=== PATIENT | female | born 1980 | race Hispanic/Latino ===

== ENCOUNTER 2019-06-14 18:24 | Emergency (ER) | payer SELFPAY ==
[2019-06-14] MEDS ORDERED: SODIUM CHLORIDE 0.9% 1000ML 1,000 ML IV ONE (18:53)
[2019-06-14] MEDS ORDERED: METHYLPREDNISOLONE SOD SUCC 125MG/2ML VIAL ONE (19:12)
[2019-06-14] MEDS ORDERED: EPINEPHRINE 1 MG/ML AMPULE ONE (19:12)
[2019-06-14] MEDS ORDERED: FAMOTIDINE/PF 20 MG/2 ML VIAL IV ONE (19:12)
[2019-06-14] MEDS ORDERED: DiphenhydrAMINE HCL 50 MG/ML VIAL ONE (19:12)
== END 2019-06-14 20:05 | disposition home or self-care (01) ==
LOC: EDH 18:24
DX: T63.441A Toxic effect of venom of bees, accidental (unintentional), initial encounter (principal); T78.2XXA Anaphylactic shock, unspecified, initial encounter; I10 Essential (primary) hypertension; Z88.6 Allergy status to analgesic agent; X58.XXXA Exposure to other specified factors, initial encounter
CPT/HCPCS: 94640; 96372 ×2; 96374; 96375; 99284; J0171; J1200; J2930; J3490; J7030

== ENCOUNTER 2019-06-20 21:56 | Emergency (ER) | payer SELFPAY ==
[2019-06-20 22:28] LABS: CREATININE 1.1 mg/dL (0.5-1.5); POTASSIUM 4.1 mmol/L (3.5-5.1)
[2019-06-20 22:29] LABS: INR 0.94 (0.85-1.15); PARTIAL THROMBOPLASTIN TIME 26.9 SEC (26.3-35.5); PROTHROMBIN TIME 9.9 SEC (9.6-11.6)
[2019-06-20 22:32] LABS: ALBUMIN 3.5 g/dL (3.5-5.0); BILIRUBIN,TOTAL 0.2 mg/dL (0.2-1.0); TOTAL PROTEIN, SERUM 7.5 g/dL (6.0-8.3)
[2019-06-20 22:38] LABS: BASOPHILS % (AUTO) 0.5 % (0.0-5.0); EOSINOPHILS % (AUTO) 6.7 % (0.0-8.0); HEMATOCRIT 43.3 % (36-48); LYMPHOCYTES % (AUTO) 21.7 % (21.0-51.0); MEAN CORPUSCULAR HEMOGLOBIN 29.5 pg (27.0-33.0); MEAN CORPUSCULAR HGB CONC 33.3 g/dL (32.0-36.0); MEAN CORPUSCULAR VOLUME 88.6 fL (79-99); MONOCYTES % (AUTO) 5.6 % (3.0-13.0); NEUTROPHILS % (AUTO) 65.5 % (40.0-77.0); PLATELET COUNT (AUTO) 292 K/uL (130-400); RED BLOOD CELL COUNT(AUTO) 4.88 MIL/uL (4.00-5.50); RED CELL DISTRIBUTION WIDTH 12.8 % (11.0-15.5); WHITE BLOOD COUNT (AUTO) 13.7 K/uL (4.8-10.8)
[2019-06-20 23:06] LABS: APPEARANCE,URINE Clear (CLEAR); BILIRUBIN,URINE Negative (NEGATIVE); COLOR,URINE Yellow (YELLOW); GLUCOSE, URINE (UA) Negative (NEGATIVE); KETONES,URINE Negative (NEGATIVE); LEUKOCYTE ESTERASE ,URINE Negative (NEGATIVE); NITRATE,URINE Negative (NEGATIVE); OCCULT BLOOD,URINE Negative (NEGATIVE); PH,URINE 5.5 (5.0-8.0); PROTEIN,URINE Negative (NEGATIVE); UROBILINOGEN,URINE 0.2 mg/dL (0.2-1.0)
[2019-06-20 23:08] LABS: HCG,QUAL RESULT NEGATIVE (NEGATIVE)
[2019-06-20 23:13] LABS: AMPHET/METH SCREEN,URINE NEGATIVE (NEGATIVE); BARBITURATE SCREEN, URINE NEGATIVE (NEGATIVE); BENZODIAZEPINES SCREEN,URINE NEGATIVE (NEGATIVE); CANNABINOID SCREEN,URINE NEGATIVE (NEGATIVE); COCAINE SCREEN,URINE NEGATIVE (NEGATIVE); OPIATE SCREEN,URINE NEGATIVE (NEGATIVE); PHENCYCLIDINE SCREEN,URINE NEGATIVE (NEGATIVE)
[2019-06-20] MEDS ORDERED: TRAMADOL HCL 50 MG TABLET ONE (23:26)
== END 2019-06-21 00:50 | disposition home or self-care (01) ==
LOC: EDH 21:56
DX: R07.89 Other chest pain (principal); R51 Headache; R20.2 Paresthesia of skin; R19.7 Diarrhea, unspecified; M54.6 Pain in thoracic spine; I10 Essential (primary) hypertension; J45.909 Unspecified asthma, uncomplicated; Z88.6 Allergy status to analgesic agent
CPT/HCPCS: 36415; 71045; 80053; 80305; 81003; 81025; 82550; 84484; 85025; 85610; 85730; 93005

== ENCOUNTER 2022-07-21 14:23 | Emergency (ER) | payer OTHER ==
[~2022-07-21] VITALS: Ht 152.4 cm; Wt 95.3 kg
[2022-07-21 15:07] LABS: BASOPHILS % (AUTO) 0.4 % (0.0-5.0); HEMATOCRIT 40.8 % (36-48); LYMPHOCYTES % (AUTO) 29.6 % (21.0-51.0); MEAN CORPUSCULAR HGB CONC 32.6 g/dL (32.0-36.0); MEAN CORPUSCULAR VOLUME 88.9 fL (79-99); MONOCYTES % (AUTO) 4.5 % (3.0-13.0); PLATELET COUNT (AUTO) 305 K/uL (130-400); RED BLOOD CELL COUNT(AUTO) 4.59 MIL/uL (4.00-5.50); RED CELL DISTRIBUTION WIDTH 12.5 % (11.0-15.5); WHITE BLOOD COUNT (AUTO) 11.2 K/uL (4.8-10.8)
[2022-07-21 15:18] LABS: CREATININE 1.1 mg/dL (0.5-1.5); POTASSIUM 4.1 mmol/L (3.5-5.1)
[2022-07-21 15:22] LABS: ALBUMIN 3.2 g/dL (3.5-5.0); TOTAL PROTEIN, SERUM 7.5 g/dL (6.0-8.3)
[2022-07-21 16:40] VITALS: BP 134/86
== END 2022-07-21 16:35 | disposition home or self-care (01) ==
LOC: EDH 14:23
DX: R07.89 Other chest pain (principal); M19.90 Unspecified osteoarthritis, unspecified site; I10 Essential (primary) hypertension; Z88.6 Allergy status to analgesic agent
CPT/HCPCS: 36415; 71045; 80053; 84484; 84703; 85025; 93005

== ENCOUNTER 2024-04-10 06:47 | Emergency (ER) | payer OTHER ==
[~2024-04-10] VITALS: Ht 157.5 cm; Wt 87.1 kg
[2024-04-10 07:06] LABS: BASOPHILS # (AUTO) 0.07 K/uL (0.00-0.20); BASOPHILS % (AUTO) 0.5 % (0.0-5.0); HEMATOCRIT 42.8 % (36-48); IMMATURE GRANULOCYTE ABSOLUTE 0.05 K/uL (0-1); LYMPHOCYTES # (AUTO) 3.9 K/uL (1.0-4.8); LYMPHOCYTES % (AUTO) 29.5 % (21.0-51.0); MEAN CORPUSCULAR HEMOGLOBIN 28.7 pg (27.0-33.0); MEAN CORPUSCULAR HGB CONC 33.2 g/dL (32.0-36.0); MEAN CORPUSCULAR VOLUME 86.6 fL (79-99); MONOCYTES # (AUTO) 0.7 K/uL (0.1-1.0); MONOCYTES % (AUTO) 5.5 % (3.0-13.0); NEUTROPHILS # (AUTO) 7.8 K/uL (1.8-7.7); NEUTROPHILS % (AUTO) 58.1 % (40.0-77.0); PLATELET COUNT (AUTO) 300 K/uL (130-400); RED BLOOD CELL COUNT(AUTO) 4.94 MIL/uL (4.00-5.50); RED CELL DISTRIBUTION WIDTH 12.4 % (11.0-15.5); WHITE BLOOD COUNT (AUTO) 13.4 K/uL (4.8-10.8)
[2024-04-10 07:23] LABS: ALBUMIN 3.4 g/dL (3.5-5.0); BILIRUBIN,TOTAL 0.5 mg/dL (0.2-1.0); CREATININE 0.9 mg/dL (0.5-1.0); POTASSIUM 4.6 mmol/L (3.5-5.1)
[2024-04-10 07:35] LABS: SARS-CoV-2, RNA, NAAT NEGATIVE SARS CoV-2 (NEGATIVE)
[2024-04-10 07:42] LABS: INFLUENZA TYPE A Negative For Type A (NEGATIVE); INFLUENZA TYPE B Negative For Type B (NEGATIVE)
[2024-04-10] MEDS: SOLU-MEDROL 125MG VIAL IVP ONE (08:42)
[2024-04-10 08:52] VITALS: PULSE 77; RESP 18
[2024-04-10] MEDS: IPRATROPIUM/ALBUTEROL SULFATE 3 ML SOLUTION IH ONE (08:52)
[2024-04-10] MEDS ORDERED: FLUT16H NASAL (13:21)
[2024-04-10] MEDS ORDERED: AMOX-426 PO (13:21)
[2024-04-10] MEDS ORDERED: PRED20TA3 PO (13:21)
[2024-04-10 13:27] VITALS: BP 99/61; PULSE 71; RESP 16; O2SAT 99
== END 2024-04-10 13:29 | disposition home or self-care (01) ==
LOC: EDH 06:47
DX: J45.902 Unspecified asthma with status asthmaticus (principal); J20.9 Acute bronchitis, unspecified; I10 Essential (primary) hypertension; M19.90 Unspecified osteoarthritis, unspecified site; Z20.822 Contact with and (suspected) exposure to COVID-19; Z98.890 Other specified postprocedural states; Z88.6 Allergy status to analgesic agent
CPT/HCPCS: 99285; 96374; 71045; 87635; 84484; 80053; 85025; 87804 ×2; 36415; 93005; 94640; J2919

== ENCOUNTER 2024-04-26 01:58 | Emergency (ER) | payer OTHER ==
[~2024-04-26] VITALS: Ht 149.9 cm; Wt 97.5 kg
[~2024-04-26 01:58] MED LIST: AMOX-426 PO; FLUT16H NASAL; PRED20TA3 PO
[2024-04-26] MEDS ORDERED: PRED20TA3 PO (02:46)
[2024-04-26 02:59] VITALS: BP 157/97; PULSE 74; RESP 18; O2SAT 100
[2024-04-26] MEDS: DEXAMETHASONE SOD PHOSPHATE 4 MG/ML 1ML VIAL IM STA (03:03)
== END 2024-04-26 03:12 | disposition home or self-care (01) ==
LOC: EDH 01:58
DX: J02.9 Acute pharyngitis, unspecified (principal); J45.909 Unspecified asthma, uncomplicated; I10 Essential (primary) hypertension
CPT/HCPCS: 99283; 96372; J1100